=== PATIENT | female | born 1995 | race Caucasian/White ===

== ENCOUNTER 2017-10-06 17:31 | Emergency (ER) | payer OTHER ==
[~2017-10-06] VITALS: Wt 53.2 kg
[2017-10-06 19:36] LABS: BASOPHILS % 0.5 % (0.0-2.0); EOSINOPHILS # 0.1 10^3/ul (0.0-0.5); HEMATOCRIT 39.6 % (37.0-47.0); HEMOGLOBIN 13.4 g/dl (12.0-16.0); LYMPHOCYTES # 2.3 10^3/ul (0.8-2.9); LYMPHOCYTES % 26.1 % (15.0-51.0); MEAN CORPUSCULAR HEMOGLOBIN 29.4 pg (29.0-33.0); MEAN CORPUSCULAR HGB CONC 33.8 g/dl (32.0-37.0); MEAN CORPUSCULAR VOLUME 86.8 fl (82.0-101.0); MEAN PLATELET VOLUME 10.4 fl (7.4-10.4); MONOCYTE # 0.6 10^3/ul (0.3-0.9); MONOCYTES % 6.4 % (0.0-11.0); NEUTROPHIL # 5.8 10^3/ul (1.6-7.5); NEUTROPHILS % 65.7 % (39.0-77.0); PLATELET COUNT 196 10^3/UL (140-415); RED BLOOD COUNT 4.56 10^6/ul (4.20-5.40); RED CELL DISTRIBUTION WIDTH 11.8 % (11.5-14.5); WHITE BLOOD COUNT 8.8 10^3/ul (4.8-10.8)
[2017-10-06 19:40] LABS: ADD UMIC YES; UR ASCORBIC ACID NEGATIVE (NEGATIVE); UR BILIRUBIN (Dip) NEGATIVE (NEGATIVE); UR BLOOD (Dip) 3+ mg/dL (NEGATIVE); UR CLARITY CLEAR (CLEAR); UR COLOR YELLOW (YELLOW); UR GLUCOSE (Dip) NEGATIVE (NEGATIVE); UR KETONES (Dip) NEGATIVE (NEGATIVE); UR LEUKOCYTE ESTERASE (Dip) NEGATIVE Leu/ul (NEGATIVE); UR NITRITE (Dip) NEGATIVE (NEGATIVE); UR RBC 2 /HPF (0-5); UR SPECIFIC GRAVITY (Dip) 1.008 (1.003-1.030); UR TOTAL PROTEIN (Dip) NEGATIVE (NEGATIVE); UR UROBILINOGEN (Dip) NEGATIVE (NEGATIVE)
--- NOTE | 2017-10-06 20:19 | RADRPT ---
PROCEDURE: US OB. CLINICAL INDICATION: Vaginal bleeding. Clinical estimate gestational age is 7 weeks 6 days with e stimated date of delivery 05/19/2018 TECHNIQUE: Transabdominal and transvaginal views of the pelvis are available for review. COMPARISON: No prior studies are available for comparison. FINDINGS: Sibley-rump length:0.34 cm heart rate:No embryonic heart activity seen at this time which could be due to early gestati onal age. Ultrasound estimated gestational age:6 weeks 0 days Estimated date of delivery: 06/01/2018 There is a 8 x 5 x 3 mm oval area of decreased echogenicity adjacent to the gestational sac which co uld represent a small subchorionic bleed. No ovarian or adnexal mass lesion is seen. There is a likely 1.4 cm right ovarian corpus luteum. The re is no free fluid. IMPRESSION: Single intrauterine with an estimated gestational age of 6 weeks 0 days based on ultrasoun d measurement. No embryonic heart activity seen at this time which could be due to early gestational age. Possible small subchorionic bleed. Follow-up is recommended. RPTAT: HJES .Isai Murillo MD, Date Time Electronically viewed and signed by .Isai Murillo MD, on 10/06/2017 20:19 .S/
--- NOTE | 2017-10-06 20:54 | ERD ---
ER Documentation Chief Complaint Chief Complaint vag bleed 8 wks preg HPI 22 YEAR OLD FEMALE WITH LMP BEING FIRST WEEK SEPT PRESENTS COMPLAINING OF MILD VAGINAL BLEEDING FOR ONE DAY. PATIENT DENIES FEVERS, PELVIC OR ABDOMINAL PAIN, DYSURIA. SHE STATES HER OBGYN APPT IS NEXT THURSDAY ROS All systems reviewed and are negative except as per history of present illness. PMhx/Soc Medical and Surgical Hx: pt denies Medical Hx, pt denies Surgical Hx Hx Alcohol Use: No Hx Substance Use: No Hx Tobacco Use: No Smoking Status: Never smoker Physical Exam Vitals Vital Signs Date Time Temp Pulse Resp B/P Pulse Ox O2 Delivery O2 Flow Rate FiO2 10/06/17 17:35 97.9 60 20 125/70 100 Physical Exam Const: [] Head: Atraumatic Eyes: Normal Conjunctiva ENT: Normal External Ears, Nose and Mouth. Neck: Full range of motion..~ No meningismus. Resp: Clear to auscultation bilaterally Cardio: Regular rate and rhythm, no murmurs Abd: Soft, non tender, non distended. Normal bowel sounds Skin: No petechiae or rashes Back: No midline or flank tenderness Ext: No cyanosis, or edema Neur: Awake and alert Psych: Normal Mood and Affect Result Diagram: 10/06/171924 Results 24 hrs Laboratory Tests Test 10/06/17 19:25 White Blood Count 8.810^3/ul Red Blood Count 4.5610^6/ul Hemoglobin 13.4g/dl Hematocrit 39.6% Mean Corpuscular Volume 86.8fl Mean Corpuscular Hemoglobin 29.4pg Mean Corpuscular Hemoglobin Concent 33.8g/dl Red Cell Distribution Width 11.8% Platelet Count 06959^3/UL Mean Platelet Volume 10.4fl Neutrophils % 65.7% Lymphocytes % 26.1% Monocytes % 6.4% Eosinophils % 1.0% Basophils % 0.5% Nucleated Red Blood Cells % 0.0/100WBC Neutrophils # 5.810^3/ul Lymphocytes # 2.310^3/ul Monocytes # 0.610^3/ul Eosinophils # 0.110^3/ul Basophils # 0.010^3/ul Nucleated Red Blood Cells # 0.010^3/ul Urine Color YELLOW Urine Clarity CLEAR Urine pH 9.0 Urine Specific [place] 1.008 Urine Ketones NEGATIVEmg/dL Urine Nitrite NEGATIVEmg/dL Urine Bilirubin NEGATIVEmg/dL Urine Urobilinogen NEGATIVEmg/dL Urine Leukocyte Esterase NEGATIVELeu/ul Urine Microscopic RBC 2/HPF Urine Microscopic WBC 0/HPF Urine Hemoglobin 3+mg/dL Urine Glucose NEGATIVEmg/dL Urine Total Protein NEGATIVEmg/dl Beta HCG, Quantitative 15736.0mIU/ml Procedures/MDM 22 year old female who is 6 weeks presents with mild vaginal bleeding for one day. Lab work was drawn. CBC did not show any evidence of leukocytosis or anemia. UA did not show any evidence of hemoglobin or urinary tract infection. Beta hcg 32[address] OB ultrasound Single intrauterine with an estimated gestational age of 6 weeks 0 days based on ultrasound measurement. No embryonic heart activity seen at this time which could be due to early gestational age. Possible small subchorionic bleed. Follow-up is recommended. Because of patient to follow-up with her REGISTERED NURSE TEACHER in the next couple days. Discussed return to the ER for any worsening signs or symptoms. She understands and agrees with this plan Departure Diagnosis: Primary Impression: Vaginal bleeding in patient at less than 20 weeks ges... Condition: Stable Patient Instructions: Bleeding During Early Additional Instructions: FOLLOW UP WITH YOUR PRIMARY CARE PHYSICIAN TOMORROW.Return to this facility if you are not improving as expected. Return to this facility if you are not improving as expected. YAS NAILS PA-C Oct 06, 2017 20:54
[2017-10-06 21:03] VITALS: BP 122/70; PULSE 89; RESP 20; TEMP 98.2
== END 2017-10-06 21:04 | disposition home or self-care (01) ==
LOC: FTE 17:31
DX: O20.9 Hemorrhage in early pregnancy, unspecified (principal); R10.2 Pelvic and perineal pain; Z3A.01 Less than 8 weeks gestation of pregnancy
CPT/HCPCS: 76801; 76817; 81001; 84702; 85025; 86900; 86901; Z7502

== ENCOUNTER 2017-10-08 02:08 | Emergency (ER) | payer OTHER ==
[~2017-10-08] VITALS: Ht 152.4 cm; Wt 53.0 kg
[2017-10-08 02:17] VITALS: Ht 152.4 cm; Wt 53.0 kg
[2017-10-08] MEDS ORDERED: ACETAMINOPHEN 325 MG TAB PO STA (03:38)
[2017-10-08] MEDS ORDERED: PNV11TAB PO (04:26)
--- NOTE | 2017-10-08 04:26 | ERD ---
ER Documentation Chief Complaint Chief Complaint vaginal bleeding/cramping since yesterday. states 6 weeks prenant HPI 22-year-old female presents to emergency department for complaints of vaginal bleeding that started yesterday. Patient is approximately 6 weeks . Patient was seen here in the emergency department yesterday, was told to be bleeding, had a subchorionic bleed in her . Patient is 1 para 0 0. LMP 08/12/2017. Patient continues to have the bleeding. Patient' s clinical pelvic pain cramping pain, 4/10 scale, accompanying the vaginal bleeding. Soaked 3 pads a day. Patient denies any flank pain. Patient denies any fever or chills. ROS All systems reviewed and are negative except as per history of present illness. Medications Home Meds Reported Medications [id number] ( 19) Unknown Strength Tablet, PO DAILY, TAB 10/08/17 Allergies Allergies: Coded Allergies: No Known Drug Allergies (Verified Allergy, Unknown, 10/08/17) PMhx/Soc Medical and Surgical Hx: pt denies Medical Hx, pt denies Surgical Hx Hx Alcohol Use: No Hx Substance Use: No Hx Tobacco Use: No FmHx Family History: No coronary disease, No diabetes, No other Physical Exam Vitals Vital Signs Date Time Temp Pulse Resp B/P Pulse Ox O2 Delivery O2 Flow Rate FiO2 10/08/17 02:17 98.0 80 20 101/65 100 Physical Exam GENERAL: The patient is well developed and appropriate for usual state of health, in no apparent distress. CHEST: Clear to auscultation bilaterally. There are no rales, wheezes or rhonchi. HEART: Regular rate and rhythm. No murmurs, clicks, rubs or gallops. No S3 or S4. ABDOMEN: Soft, nontender and nondistended. Good bowel sounds. No rebound or guarding. No gross peritonitis. No gross organomegaly or masses. No Way sign or McBurney point tenderness. BACK: No midline or flank tenderness. EXTREMITIES: Equal pulses bilaterally. There is no peripheral clubbing, cyanosis or edema. No focal swelling or erythema. Full range of motion. Grossly neurovascularly intact. NEURO: Alert and oriented. Cranial nerves 2-12 intact. Motor strength in all 4 extremities with 5/5 strength. Sensation grossly intact. Normal speech and gait. SKIN: There is no apparent rash or petechia. The skin is warm and dry. HEMATOLOGIC AND LYMPHATIC: There is no evidence of excessive bruising or lymphedema. No gross cervical, axillary, or inguinal lymphadenopathy. Vaginal: Small amount of blood in the vaginal vault. Cervical loss is closed. No cervical motion tenderness or adnexal tenderness noted. Result Diagram: 10/08/17 0413 Results 24 hrs Laboratory Tests Test 10/08/17 04:13 10/08/17 04:55 White Blood Count 9.610^3/ul Red Blood Count 4.5710^6/ul Hemoglobin 13.4g/dl Hematocrit 39.9% Mean Corpuscular Volume 87.3fl Mean Corpuscular Hemoglobin 29.3pg Mean Corpuscular Hemoglobin Concent 33.6g/dl Red Cell Distribution Width 12.0% Platelet Count 26523^3/UL Mean Platelet Volume 11.0fl Neutrophils % 65.2% Lymphocytes % 27.4% Monocytes % 5.8% Eosinophils % 0.8% Basophils % 0.5% Nucleated Red Blood Cells % 0.0/100WBC Neutrophils # 6.210^3/ul Lymphocytes # 2.610^3/ul Monocytes # 0.610^3/ul Eosinophils # 0.110^3/ul Basophils # 0.110^3/ul Nucleated Red Blood Cells # 0.010^3/ul Beta HCG, Quantitative 05638.0mIU/ml Urine Color YELLOW Urine Clarity CLEAR Urine pH 8.0 Urine Specific [place] 1.004 Urine Ketones NEGATIVEmg/dL Urine Nitrite NEGATIVEmg/dL Urine Bilirubin NEGATIVEmg/dL Urine Urobilinogen NEGATIVEmg/dL Urine Leukocyte Esterase NEGATIVELeu/ul Urine Microscopic RBC 35/HPF Urine Microscopic WBC 1/HPF Urine Hemoglobin 3+mg/dL Urine Glucose NEGATIVEmg/dL Urine Total Protein NEGATIVEmg/dl Current Medications Medications (Trade) Dose Ordered Sig/Ericka Route PRN Reason Start Time Stop Time Status Last Admin Dose Admin Acetaminophen (Tylenol Tab) 650 mg ONCE STAT PO 10/08/17 03:38 10/08/17 03:41 DC 10/08/17 04:15 Patient was given medication for pain here in emergency department, after treatment, patient verbalized feeling much better. Patient's pain is improved. PROCEDURE: Obstetrical ultrasound. CLINICAL INDICATION: Vaginal bleeding. TECHNIQUE: Multiple sonographic images of the pelvis were obtained utilizing a transabdominal and endovaginal technique. The images were reviewed on a PACS workstation. COMPARISON: 10/06/2017. FINDINGS: The uterus is visualized and measures 5.8 x 3.4 x 4.4 cm. No abnormal uterine mass is identified. The endometrial echo complex is mildly thickened and heterogeneous measuring 12.9 cm. There is mild color flow within the endometrium suggestive of retained products. Intrauterine is no longer identified. There is no evidence for free fluid. The right ovary has a normal echotexture and measures 2.8 x 1.3 x 1.7 cm. The left ovary has a normal echotexture and measures 2.4 x 1.1 x 1.4 cm. There is normal flow to both ovaries. No adnexal masses are identified. IMPRESSION: Mildly thickened and heterogeneous endometrium with color flow suggestive of retained products. Intrauterine no longer Identified. .Baljinder Morales MD, Date Time Electronically viewed and signed by .Baljinder Morales MD, on 10/08/2017 04:51 .T/ CC: PAVITHRA FIELDS. [employer]TER Procedures/MDM Consulted OB specialist, Dr. Mccullough, reviewed ultrasound with her, recommended to give Methergine outpatient for possible removal of retained products. Strict return precautions for any worsening symptoms. Medical Decision Making: Patients vaginal bleeding is most likely consistent of possible , spontaneous . Patient does not show any evidence of hypovolemic shock. Patients hemoglobin and hematocrit is stable. There is low suspicion for ectopic . ELEN does not show that previously an intrauterine consistent with spontaneous . BetaHCG Quantitative is lower. As per discussion with my OB specialist, Dr. Mccullough, patient can be given Methergine to go home with help of passing of the retained products..The patient is Rh+, does not need RhoGAM this time. There is no signs of symptoms of dehydration. There is low suspicion for sepsis. Patient appears well and is hemodynamically stable. Disposition: Home. Condition: Stable Rx:: Ibuprofen, Orrum, Methergine, Zofran Instructions: Patient is advised to do bed rest, avoid heavy lifting, and avoid having sex until cleared by OB doctor. Patient is advised to follow up with OB doctor for further follow-up. Patient is advised that is symptoms are worst, severe bleeding, dizziness, severe abdominal pain, fever, worst signs and symptoms to return to the emergency department immediately. Disclaimer: Inadvertent spelling and grammatical errors are likely due to EHR/ dictation software use and do not reflect on the overall quality of patient care. Also, please note that the electronic time recorded on this note does not necessarily reflect the actual time of the patient encounter. Departure Diagnosis: Primary Impression: Spontaneous Condition: Stable Patient Instructions: Miscarriage, Spontaneous (Completed) Additional Instructions: Patient is advised to do bed rest, avoid heavy lifting, and avoid having sex until cleared by OB doctor. Patient is advised to follow up with OB doctor for further follow-up. Patient is advised that is symptoms are worst, severe bleeding, dizziness, severe abdominal pain, fever, worst signs and symptoms to return to the emergency department immediately. PAVITHRA FIELDS NP Oct 08, 2017 04:26
[2017-10-08 04:35] LABS: BASOPHIL # 0.1 10^3/ul (0.0-0.1); BASOPHILS % 0.5 % (0.0-2.0); EOSINOPHILS # 0.1 10^3/ul (0.0-0.5); EOSINOPHILS % 0.8 % (0.0-7.0); HEMATOCRIT 39.9 % (37.0-47.0); HEMOGLOBIN 13.4 g/dl (12.0-16.0); LYMPHOCYTES # 2.6 10^3/ul (0.8-2.9); LYMPHOCYTES % 27.4 % (15.0-51.0); MEAN CORPUSCULAR HEMOGLOBIN 29.3 pg (29.0-33.0); MEAN CORPUSCULAR HGB CONC 33.6 g/dl (32.0-37.0); MEAN CORPUSCULAR VOLUME 87.3 fl (82.0-101.0); MONOCYTE # 0.6 10^3/ul (0.3-0.9); MONOCYTES % 5.8 % (0.0-11.0); NEUTROPHIL # 6.2 10^3/ul (1.6-7.5); NEUTROPHILS % 65.2 % (39.0-77.0); PLATELET COUNT 192 10^3/UL (140-415); RED BLOOD COUNT 4.57 10^6/ul (4.20-5.40); WHITE BLOOD COUNT 9.6 10^3/ul (4.8-10.8)
--- NOTE | 2017-10-08 04:51 | RADRPT ---
PROCEDURE: Obstetrical ultrasound. CLINICAL INDICATION: Vaginal bleeding. TECHNIQUE: Multiple sonographic images of the pelvis were obtained utilizing a transabdominal and endovaginal technique. The images were reviewed on a PACS workstation. COMPARISON: 10/06/2017. FINDINGS: The uterus is visualized and measures 5.8 x 3.4 x 4.4 cm. No abnormal uterine mass is identified. T he endometrial echo complex is mildly thickened and heterogeneous measuring 12.9 cm. There is mild c olor flow within the endometrium suggestive of retained products. Intrauterine is no longe r identified. There is no evidence for free fluid. The right ovary has a normal echotexture and measures 2.8 x 1. 3 x 1.7 cm. The left ovary has a normal echotexture and measures 2.4 x 1.1 x 1.4 cm. There is norm al flow to both ovaries. No adnexal masses are identified. IMPRESSION: Mildly thickened and heterogeneous endometrium with color flow suggestive of retained products. Intrauterine no longer Identified. .Baljinder Morales MD, MD Date Time Electronically viewed and signed by .Baljinder Morales MD, MD on 10/08/2017 04:51 .T/
[2017-10-08 05:39] LABS: ADD UMIC YES; UR ASCORBIC ACID NEGATIVE (NEGATIVE); UR BILIRUBIN (Dip) NEGATIVE (NEGATIVE); UR BLOOD (Dip) 3+ mg/dL (NEGATIVE); UR CLARITY CLEAR (CLEAR); UR COLOR YELLOW (YELLOW); UR GLUCOSE (Dip) NEGATIVE (NEGATIVE); UR KETONES (Dip) NEGATIVE (NEGATIVE); UR LEUKOCYTE ESTERASE (Dip) NEGATIVE Leu/ul (NEGATIVE); UR NITRITE (Dip) NEGATIVE (NEGATIVE); UR RBC 35 /HPF (0-5); UR SPECIFIC GRAVITY (Dip) 1.004 (1.003-1.030); UR TOTAL PROTEIN (Dip) NEGATIVE (NEGATIVE); UR UROBILINOGEN (Dip) NEGATIVE (NEGATIVE)
[2017-10-08] MEDS ORDERED: HYDR-906 PO (05:45)
[2017-10-08] MEDS ORDERED: Methergine PO (05:45)
[2017-10-08] MEDS ORDERED: IBUP-1542 PO (05:45)
== END 2017-10-08 06:02 | disposition home or self-care (01) ==
LOC: FTE 02:08
DX: O03.9 Complete or unspecified spontaneous abortion without complication (principal); R10.2 Pelvic and perineal pain
CPT/HCPCS: 36415; 76801; 76817; 81001; 84702; 85025; Z7502; Z7610